=== PATIENT | female | born 1955 | race Caucasian/White ===

== ENCOUNTER → 2016-08-06 | Outpatient (CLI) | payer BC ==
--- NOTE | 2016-08-07 09:58 | MAM ---
History: Well woman exam. Date of exam: 08/06/2016 Services provided: Bilateral full field digital screening mammography. CAD, the images were reviewed with R2 computer aided detection. FINDINGS: Glandular tissue is scattered glandular contour. Study is compared with 2014 study. No dominant mass, architectural distortion or clustered microcalcification. IMPRESSION: Benign exam Recommendation: Routine annual mammography BIRAD CATEGORY: 2 BENIGN Electronically signed by: Kath Lundberg MD 08/07/2016 9:58 AM CDT
== END | disposition home or self-care (01) ==
LOC: MAMMO 12:52
PROVIDERS: ATTEND Family Medicine
DX: Z12.31 Encounter for screening mammogram for malignant neoplasm of breast (principal)

== ENCOUNTER → 2018-02-08 | Outpatient (CLI) | payer BC | LOC: GMAM 17:35 | PROVIDERS: ATTEND Family Medicine | DX: N39.0 Urinary tract infection, site not specified (principal) ==

== ENCOUNTER 2019-03-05 20:09 | Emergency (ER) | payer BC, MEDICARE ==
--- NOTE | 2019-03-05 20:30 | ED.PDOC ---
History of Present Illness - General Chief Complaint: Abdominal Pain Stated Complaint: right abd pain, low back pain Time Seen by Provider: 03/05/19 20:19 Information Source: patient, RN notes reviewed, Vital Signs reviewed Exam Limitations: no limitations - History of Present Illness Initial Comments: this is a 63-year-old white female who presents to the emergency Department with complaints of right back pain and abdominal pain. She states that at 5:30 she abruptly began to have pain in her right flank region. She states that she has not had this in the past. She admits that it is radiating around to her abdomen at present. She has been unable to hold down any medications that she has tried to use for pain. She took 2 Ultram at home but had emesis thereafter. Eyes any history of a kidney stone. She has a known history of lung cancer of the left side of the chest. She also recently had an abscess with tumor involvement that was resected and reported as benig She had her sutures removed approximately one week ago. This is also on the left thorax. Sent fever or chills. She felt good all day until 5:30 this evening. Her last meal was this afternoon. She denies having any hematuria or dysuria. Review of Systems - Review of Systems Constitutional: States: no symptoms reported. Denies: chills, fever, malaise EENTM: States: no symptoms reported Respiratory: States: no symptoms reported Cardiology: States: no symptoms reported Gastrointestinal/Abdominal: States: abdominal pain, nausea, vomiting Genitourinary: Denies: discharge, dysuria, frequency, hematuria, pain Musculoskeletal: States: back pain, other - right sided. Denies: muscle pain, muscle stiffness Skin: States: other - recent surgical scar involving the left thorax Neurological: States: anxiety Endocrine: States: no symptoms reported Hematologic/Lymphatic: States: no symptoms reported All other Systems: Reviewed and Negative Past Medical History (General) - Patient Medical History Hx Seizures: No Hx Stroke: No Hx Dementia: No Hx Asthma: No Hx of COPD: No Hx Cardiac Disorders: Yes - left bundle branch block Hx Congestive Heart Failure: No Hx Pacemaker: No Hx Hypertension: No Hx Thyroid Disease: No Hx Diabetes: No Hx Gastroesophageal Reflux: No Hx Renal Disease: No Hx Cancer: Yes - LEFT LUNG CA, 2 benign brain tumors, ribs removed Hx of HIV: No Hx Hepatitis C: No Hx MRSA: No Surgical History: cancer surgery - Vaccination History Hx Tetanus, Diphtheria Vaccination: No Hx Influenza Vaccination: No Hx Pneumococcal Vaccination: No - Social History Hx Tobacco Use: No Hx Alcohol Use: No Hx Substance Use: No Hx Substance Use Treatment: No Hx Depression: Yes - TAKES PROZAC Family Medical History - Family History Mother Family History: Unknown Physical Exam - Physical Exam General Appearance: Anxious, Obvious distress, Other - patient is writhing in pain Eyes, Ears, Nose, Throat Exam: normal ENT inspection Neck: non-tender, full range of motion, supple, normal inspection Respiratory: chest non-tender, lungs clear, normal breath sounds, no respiratory distress, no accessory muscle use Cardiovascular/Chest: normal peripheral pulses, regular rate, rhythm, no edema, no gallop, no JVD, no murmur, other - scar left thorax healing well, clean and dry Peripheral Pulses: No deficit Gastrointestinal/Abdominal: normal bowel sounds, soft, no organomegaly, no pulsatile mass, tenderness, other - left sided and suprapubic Rectal Exam: deferred Back Exam: CVA tenderness (R) Extremity: non-tender, normal inspection, no pedal edema Neurologic: no motor/sensory deficits, alert, oriented x 3 Skin Exam: normal color, warm/dry Lymphatic: no adenopathy Progress - Progress Progress: 03/05/19 20:45 EKG noted to have a normal sinus rhythm with a rate of 79 normal axis and left bundle branch block is noted no ischemic changes are appreciated this was compared to previous evaluation and noted to be stable. No changes noted. MDM: Patient presents with right-sided flank pain radiating to the abdomen. Noted to be nauseated and vomiting. This occurred abruptly. We'll evaluate her for ureterolithiasis. She has had issues with IV contrast and the past. We will avoid that for now. if the patient does not have a stone will reevaluate to see if we need to do further investigation to rule out AAA.pain medication and anti-medics to be given. 03/05/19 22:18 CT findings were discussed with the patient and her . She states that she has had a laparotomy secondaryto infertility treatment, or if she had had an appendectomy but the appendix is seen on CT evaluation and does not appear to be abnormal. More pain medication in order to get comfortable. She is starting to settle down now. CT reveals evidence of suspicious findings for small bowel obstruction. she does report eating her last meal at approximately noon. She had a bowel movement thereafter that was normal. She has passed gas since the pain has started. Will discuss these findings with the general surgeon distance education coordinator. 03/05/19 22:47 Dr. Lizama consulted. He feels that the pt should be transferred to a higher level of care given the lack of distance education coordinator surgical personel and the ct findings. 03/05/19 23:03 the patient and her have decided that they would like to be transferred to [facility]. Therefore, she will have some continuity of care. We will start the transfer process. Will also drop an ngt. 03/05/19 23:57 We are waiting to hear back from [facility]. Pt's pain is better controlled. RN is working on getting NGT placed. Lactic acid is improved at 2.4. 03/06/19 00:25 Received a call back by Dr. Brantley, surgery. Report given to Dr. Charlton, ER. Accepts transfer. 03/06/19 00:30 NGT is down. Pt's pain is controlled. at bedside. - Results/Orders Results/Orders: PELVIS: APPENDIX: No findings to suggest acute appendicitis. BLADDER: Unremarkable. No stones. REPRODUCTIVE: The patient is status post hysterectomy. ABDOMEN and PELVIS: INTRAPERITONEAL SPACE: Unremarkable. No free air. No significant fluid collection. BONES/JOINTS: Minimal degenerative change of the bones is noted. SOFT TISSUES: Postsurgical change of the left chest wall with associated scarring along the soft tissues is noted. VASCULATURE: Unremarkable. No abdominal aortic aneurysm. LYMPH NODES: Unremarkable. No enlarged lymph nodes. IMPRESSION: 1. Multiple inflamed fluid-filled small bowel loops within the right lower quadrant. Edema within the mesentery with a somewhat swirling appearance. Findings are concerning for developing small bowel obstruction from an internal hernia. 2. Pleural fluid and thickening with adjacent stranding of the left lower lobe extending into the intercostal space with associated suture line. Correlation with recent surgical intervention. Electronically signed by: Cecilia Cespedes MD 03/05/2019 9:56 PM SENIOR COUNSEL 03/05/19 20:30 EKG STAT 03/05/19 20:31 IV:Start .ONCE 03/05/19 20:32 URINALYSIS Stat Laboratory Results - last 24 hr 03/05/19 03/05/19 03/05/19 20:39 20:39 20:39 WBC 9.5 RBC 5.15 Hgb 12.6 Hct 39.4 MCV 76.4 L MCH 24.4 L MCHC 31.9 L RDW 15.2 H Plt Count 333 MPV 8.8 Absolute Neuts (auto) 7.70 H Absolute Lymphs (auto) 1.50 Absolute Monos (auto) 0.30 Absolute Eos (auto) 0.00 Absolute Basos (auto) 0.10 Neutrophils % 80.4 H Lymphocytes % 15.3 L Monocytes % 3.4 Eosinophils % 0.2 L Basophils % 0.7 Normal RBC Morphology Stain quality accept Sodium 139 Potassium 3.2 L Chloride 102 Carbon Dioxide 20 L Anion Gap 20.2 H BUN 21 H Creatinine 0.67 BUN/Creatinine Ratio 31.3 H Random Glucose 138 H Serum Osmolality 282.7 Lactic Acid 3.6 H* Calcium 10.2 Total Bilirubin 0.5 AST 27 ALT 18 Alkaline Phosphatase 63 Serum Total Protein 7.8 Albumin 4.7 Globulin 3.1 Albumin/Globulin Ratio 1.5 03/05/19 20:30 EKG STAT 03/05/19 20:31 IV:Start .ONCE 03/05/19 22:49 BLOOD CULTURE Stat 03/05/19 23:06 NG [Tube(s):Nasogastric,Insertion] PRN Laboratory Results - last 24 hr 03/05/19 03/05/19 03/05/19 20:39 20:39 20:39 WBC 9.5 RBC 5.15 Hgb 12.6 Hct 39.4 MCV 76.4 L MCH 24.4 L MCHC 31.9 L RDW 15.2 H Plt Count 333 MPV 8.8 Absolute Neuts (auto) 7.70 H Absolute Lymphs (auto) 1.50 Absolute Monos (auto) 0.30 Absolute Eos (auto) 0.00 Absolute Basos (auto) 0.10 Neutrophils % 80.4 H Lymphocytes % 15.3 L Monocytes % 3.4 Eosinophils % 0.2 L Basophils % 0.7 Normal RBC Morphology Stain quality accept Sodium 139 Potassium 3.2 L Chloride 102 Carbon Dioxide 20 L Anion Gap 20.2 H BUN 21 H Creatinine 0.67 BUN/Creatinine Ratio 31.3 H Random Glucose 138 H Serum Osmolality 282.7 Lactic Acid 3.6 H* Calcium 10.2 Total Bilirubin 0.5 AST 27 ALT 18 Alkaline Phosphatase 63 Serum Total Protein 7.8 Albumin 4.7 Globulin 3.1 Albumin/Globulin Ratio 1.5 Urine Color Urine Appearance Urine pH Ur Specific [place] Urine Protein Urine Glucose (UA) Urine Ketones Urine Blood Urine Nitrite Urine Bilirubin Urine Urobilinogen Ur Leukocyte Esterase Urine RBC Urine WBC Ur Epithelial Cells Amorphous Sediment Urine Bacteria 03/05/19 03/05/19 22:25 22:37 WBC RBC Hgb Hct MCV MCH MCHC RDW Plt Count MPV Absolute Neuts (auto) Absolute Lymphs (auto) Absolute Monos (auto) Absolute Eos (auto) Absolute Basos (auto) Neutrophils % Lymphocytes % Monocytes % Eosinophils % Basophils % Normal RBC Morphology Sodium Potassium Chloride Carbon Dioxide Anion Gap BUN Creatinine BUN/Creatinine Ratio Random Glucose Serum Osmolality Lactic Acid 2.4 H* Calcium Total Bilirubin AST ALT Alkaline Phosphatase Serum Total Protein Albumin Globulin Albumin/Globulin Ratio Urine Color Yellow Urine Appearance Clear Urine pH 7.5 Ur Specific [place] 1.020 Urine Protein Negative Urine Glucose (UA) Negative Urine Ketones 40 H Urine Blood Trace-intact H Urine Nitrite Negative Urine Bilirubin Negative Urine Urobilinogen 0.2 Ur Leukocyte Esterase Trace H Urine RBC 0-1 Urine WBC 0-1 Ur Epithelial Cells 0 Amorphous Sediment Trace Urine Bacteria Rare - EKG/XRAY/CT EKG: Sinus, LBBB Departure - Departure Clinical Impression: Small bowel obstruction, Dehydration, Hypokalemia Nausea & vomiting Qualifiers: Vomiting type: unspecified Vomiting Intractability: intractable Qualified Code(s): R11.2 - Nausea with vomiting, unspecified Disposition: Discharge to Home or Self Care Departure Forms: ED Discharge - Pt. Copy, Patient Portal Self Enrollment Instructions: DI for Abdominal Pain-Adult Referrals: Tej Lainez MD [Primary Care Provider] - 1-2 Weeks Home Medications: Ambulatory Orders Fluoxetine HCl [PROzac] 20 mg PO DAILY 07/30/18 Transfer to Outside Facility - Transfer Information Decision to Transfer Date: 03/06/19 Decision to Transfer Time: 00:29 Reason for Transfer: specialized care not available Accepting Provider:: Dr. Charlton Accepting Facility: [facility]
[2019-03-05] MEDS ORDERED: ONDANSETRON INJ 4 MG/2 ML VIAL IV ONE (20:31)
[2019-03-05] MEDS ORDERED: KETOROLAC TROMETHAMINE INJ 30 MG/ML VIAL IV ONE (20:32)
[2019-03-05] MEDS ORDERED: SODIUM CHLORIDE 0.9% 1000ML 1,000 ML IVS ONE ×2 (20:32→21:09)
[2019-03-05] MEDS ORDERED: fentaNYL CITRATE INJ 50 MCG/ML AMP IV ONE ×3 (20:54→23:03)
[2019-03-05] MEDS ORDERED: fentaNYL CITRATE INJ 50 MCG/ML AMP ONE (20:54)
--- NOTE | 2019-03-05 21:57 | CT ---
EXAM: CT Abdomen and Pelvis Without Intravenous Contrast CLINICAL HISTORY: The patient is 63 years old and is Female; right flank pain TECHNIQUE: Axial computed tomography images of the abdomen and pelvis without intravenous contrast. Sagittal and coronal reformatted images were created and reviewed. This CT exam was performed using one or more of the following dose reduction techniques: automated exposure control, adjustment of the mA and/or kV according to patient size, and/or use of iterative reconstruction technique. COMPARISON: CT of the chest December 19, 2011. FINDINGS: LUNG BASES: Suture line along the left lower lobe is present. PLEURAL SPACE: Pleural thickening/fluid along the left lower lobe is present. ABDOMEN: LIVER: Homogeneous without focal mass. GALLBLADDER AND BILE DUCTS: No calcified stones. No ductal dilation. PANCREAS: Unremarkable. No ductal dilation. SPLEEN: Unremarkable. ADRENALS: Unremarkable. No mass. KIDNEYS AND URETERS: A 1.3 cm low attenuating exophytic left renal lesion is present. There is no hydronephrosis or hydroureter of either kidney. No obstructing renal or ureteral calculus is seen. STOMACH AND BOWEL: The stomach is minimally fluid filled. Several distal small bowel loops are fluid-filled and demonstrate mesenteric stranding and edema stool is present throughout the colon. PELVIS: APPENDIX: No findings to suggest acute appendicitis. BLADDER: Unremarkable. No stones. REPRODUCTIVE: The patient is status post hysterectomy. ABDOMEN and PELVIS: INTRAPERITONEAL SPACE: Unremarkable. No free air. No significant fluid collection. BONES/JOINTS: Minimal degenerative change of the bones is noted. SOFT TISSUES: Postsurgical change of the left chest wall with associated scarring along the soft tissues is noted. VASCULATURE: Unremarkable. No abdominal aortic aneurysm. LYMPH NODES: Unremarkable. No enlarged lymph nodes. IMPRESSION: 1. Multiple inflamed fluid-filled small bowel loops within the right lower quadrant. Edema within the mesentery with a somewhat swirling appearance. Findings are concerning for developing small bowel obstruction from an internal hernia. 2. Pleural fluid and thickening with adjacent stranding of the left lower lobe extending into the intercostal space with associated suture line. Correlation with recent surgical intervention. Electronically signed by: Cecilia Cespedes MD 03/05/2019 9:56 PM MENTALLY RETARDED TEACHER
[2019-03-05] MEDS ORDERED: PANTOPRAZOLE SODIUM IV 40 MG VIAL IV ONE (22:22)
[2019-03-05] MEDS ORDERED: PROMETHAZINE HCL INJ 12.5 MG in SODIUM CHLORIDE 0.9% 50ML 50 ML IVPB ONE (23:03)
[2019-03-05] MEDS ORDERED: PROMETHAZINE HCL INJ 25 MG/ML VIAL ONE (23:16)
[2019-03-05] MEDS ORDERED: SODIUM CHLORIDE 0.9% 50ML 50 ML ONE (23:16)
[2019-03-05] MEDS ORDERED: KCL 40 MEQ/WATER FOR INJ 100ML 40 MEQ in PREMIX BAG 1 BAG IVPB ONE (23:58)
[2019-03-05] MEDS ORDERED: SODIUM CHLORIDE 0.9% 1000ML 1,000 ML IVS PRN (23:58)
[2019-03-06] MEDS ORDERED: KCL 40 MEQ/WATER FOR INJ 100ML 100 ML IVPB ONE (00:06)
[2019-03-06 00:26] VITALS: O2SAT 97
--- NOTE | 2019-03-06 00:55 | RAD ---
EXAM DESCRIPTION: Chest,1 View CLINICAL HISTORY: 63 years Female S/P NG tube placement COMPARISON: July 30, 2018 TECHNIQUE: Six images of the chest were obtained. FINDINGS: Feeding tube is present with the tip seen coursing below the left hemidiaphragm. Cardiac silhouette is enlarged. Central vessels are mildly increased. No effusion on right. Small effusion on left. Airspace opacities lower lungs bilaterally. Surgical clips left lower lung. IMPRESSION: Feeding tube tip coursing into region of left upper abdomen. Tip not included on available images. Postsurgical changes left hemithorax with small left pleural effusion versus pleural reaction. Mild mediastinal shift to the left with loss of volume left hemithorax. Suspected atelectatic change lower lungs bilaterally. Electronically signed by: Avril Tavares MD 03/06/2019 12:54 AM [facility]UST
[2019-03-06 01:01] VITALS: BP 119/72; TEMP 98.5
[2019-03-06] MEDS ORDERED: fentaNYL CITRATE INJ 50 MCG/ML AMP IV ONE (01:13)
== END 2019-03-06 01:29 | disposition home or self-care (01) ==
LOC: ER 20:09
DX: K56.609 Unspecified intestinal obstruction, unspecified as to partial versus complete obstruction (principal); E86.0 Dehydration; E87.6 Hypokalemia; R11.2 Nausea with vomiting, unspecified; I44.7 Left bundle-branch block, unspecified; F32.9 Major depressive disorder, single episode, unspecified; Z85.118 Personal history of other malignant neoplasm of bronchus and lung; Z86.011 Personal history of benign neoplasm of the brain; Z79.899 Other long term (current) drug therapy
CPT/HCPCS: 71045; 74176; 80053; 81001; 83605; 85025; 87040; 93005; A4216; J1885; J2405; J2550; J3010; J3480; J7030